=== PATIENT | female | born 1985 | race Caucasian/White ===

== ENCOUNTER 2017-08-01 01:22 | Emergency (ER) | payer OTHER ==
[~2017-08-01] VITALS: Ht 170.2 cm; Wt 65.8 kg
[2017-08-01 01:47] LABS: BILIRUBIN,URINE NEGATIVE (NEG); GLUCOSE,URINE NEGATIVE (NEG); NITRITE,URINE POSITIVE (NEG); PROTEIN,URINE NEGATIVE (NEG-TRACE)
[2017-08-01 01:53] LABS: BACTERIA,URINE MANY /HPF (0-FEW); SQUAMOUS EPITHELIAL CELL,UR MOD /LPF
[2017-08-01] MEDS ORDERED: NITROFURANTOIN MONOHYD/M-CRYST 100 MG CAPSULE. PO ONE ×2 (02:00→02:01)
[2017-08-01] MEDS ORDERED: PHENAZOPYRIDINE 200 MG TABLET. PO ONE (02:00)
[2017-08-01] MEDS ORDERED: PHENAZOPYRIDINE 200 MG TABLET. ONE (02:01)
[2017-08-01 02:02] VITALS: BP 127/75
[2017-08-01] MEDS ORDERED: ONDA4TAB10 PO (02:12)
[2017-08-01] MEDS ORDERED: PHEN-318 PO (02:12)
[2017-08-01] MEDS ORDERED: NITR100C62 PO (02:12)
--- NOTE | 2017-08-01 02:12 | PHYS DOC ---
Past Medical History Past Medical History: Kidney Infection, UTI Past Surgical History: Tubal ligation Additional Past Surgical Histo: URETER REFLEX SX Additional Information: non smoker Alcohol Use: Occasionally Drug Use: None Adult General Chief Complaint Chief Complaint: FLANK PAIN HPI HPI Patient is a 32 year old female who presents with flank pain, nausea and difficulty urinating. This started yesterday. She woke up at 3:00 the morning with aches. A temperature 101 and chills. Has some nausea now. No vomiting however. No diarrhea. She states it was hard to urinate throughout the day. She' s had prior urinary tract infections in the past she states. No recent travel. No cough or cold symptoms. Review of Systems Review of Systems Constitutional: POS fever or chills Eyes: Denies change in visual acuity, redness, or eye pain HENT: Denies nasal congestion or sore throat Respiratory: Denies cough or shortness of breath Cardiovascular: No chest pain GI: Denies abdominal pain, POS nausea, NO vomiting, bloody stools or diarrhea : POS dysuria and urinary hesitancy; NO hematuria Musculoskeletal: POS back pain and muscle aches. Integument: Denies rash or skin lesions Neurologic: Denies headache, focal weakness or sensory changes All other systems were reviewed and found to be within normal limits, except as documented in this note. Current Medications Current Medications Current Medications Medications (Trade) Dose Ordered Sig/Alvino Start Time Stop Time Status Last Admin Dose Admin Ketorolac Tromethamine (Toradol Im) 60 mg 1X ONCE 08/01/17 02:30 08/01/17 02:30 DC 08/01/17 02:13 60 MG Nitrofurantoin Macrocrystals (Macrobid) 100 mg 1X ONCE 08/01/17 02:00 08/01/17 02:08 DC 08/01/17 02:04 100 MG Ondansetron HCl (Zofran Odt) 4 mg 1X ONCE 08/01/17 02:30 08/01/17 02:30 DC Phenazopyridine HCl (Pyridium) 200 mg 1X ONCE 08/01/17 02:00 08/01/17 02:08 DC 08/01/17 02:03 200 MG Allergies Allergies Allergies Coded Allergies Type Severity Reaction Last Updated Verified No Known Drug Allergies 08/01/17 No Physical Exam Physical Exam Constitutional: Well developed, well nourished, no acute distress, non-toxic appearance. HENT: Normocephalic, atraumatic, bilateral external ears normal, oropharynx moist, no oral exudates, nose normal. Eyes: PERRLA, EOMI, conjunctiva normal, no discharge. Neck: Normal range of motion, no tenderness, supple, no stridor. Cardiovascular:Heart rate regular rhythm, no murmur Lungs & Thorax: Bilateral breath sounds clear to auscultation Abdomen: Bowel sounds normal, soft, no tenderness, no masses, no pulsatile masses. Skin: Warm, dry, no erythema, no rash. Back: No tenderness, no CVA tenderness. Extremities: No tenderness, no cyanosis, no clubbing, ROM intact, no edema. Neurologic: Alert and oriented X 3, normal motor function, normal sensory function, no focal deficits noted. Psychologic: Affect normal, judgement normal, mood normal. Current Patient Data Vital Signs Vital Signs Date Time Temp Pulse Resp B/P (MAP) Pulse Ox O2 Delivery O2 Flow Rate FiO2 08/01/17 02:02 88 18 127/75 (92) 99 Room Air 08/01/17 01:30 98.6 98.6 Lab Values Laboratory Tests Test 08/01/17 01:24 08/01/17 01:39 Urine Collection Type Unknown Urine Color Yellow Urine Clarity Clear Urine pH 6.0 Urine Specific Anita 1.020 Urine Protein Negative mg/dL (NEG-TRACE) Urine Glucose (UA) Negative mg/dL (NEG) Urine Ketones (Stick) Negative mg/dL (NEG) Urine Blood Moderate (NEG) Urine Nitrite Positive (NEG) Urine Bilirubin Negative (NEG) Urine Urobilinogen Dipstick 1.0 mg/dL (0.2 mg/dL) Urine Leukocyte Esterase Negative (NEG) Urine RBC 6-10 /HPF (0-2) Urine WBC 5-10 /HPF (0-4) Urine Squamous Epithelial Cells Mod /LPF Urine Bacteria Many /HPF (0-FEW) Urine Mucus Mod /LPF POC Urine HCG, Qualitative Hcg negative (Negative) Course & Med Decision Making Course & Med Decision Making UA positive. UCG NEGATIVE. Toradol IM; Zofran ODT; Pyridium po and macrobid po. Home with scripts. I have spoken with the patient and/or caregivers. I have explained the patient' s condition, diagnosis and treatment plan based on the information available to me at this time. I have answered the patient's and/or caregiver's questions and addressed any concerns. The patient and/or caregivers have as good an understanding of the patient's diagnosis, condition and treatment plan as can be expected at this point. The patient's condition is stable and appropriate for discharge from the emergency department. The patient will pursue further outpatient evaluation with the primary care physician or other designated or consulting physician as outlined in the discharge instructions. The patient and/or caregivers are agreeable to this plan of care and follow-up instructions have been explained in detail. The patient and/or caregivers have received these instructions in written format and have expressed an understanding of the discharge instructions. The patient and/or caregivers are aware that any significant change in condition or worsening of symptoms should prompt an immediate return to this or the closest emergency department or a call to 911. Dragon Disclaimer Dragon Disclaimer This electronic medical record was generated, in whole or in part, using a voice recognition dictation system. Departure Departure Impression: Primary Impression: Urinary tract infection Additional Impression: Nausea Disposition: HOME, SELF-CARE Condition: STABLE Referrals: NO PCP (PCP) Patient Instructions: Urinary Tract Infection Additional Instructions: YOU WERE GIVEN YOUR FIRST DOSE OF ANTIBIOTICS HERE (MACROBID) AND PYRIDIUM ( BLADDER PAIN MEDICATION). YOU WERE GIVEN A PAIN SHOT WELL AND NAUSEA MEDICATION. Scripts Ondansetron (ZOFRAN ODT) 4 Mg Tab.rapdis 4 MG PO BID Y for NAUSEA/VOMITING, #10 TAB Prov: ADELAIDA SU MD 08/01/17 Phenazopyridine Hcl (PYRIDIUM) 200 Mg Tablet 200 MG PO TID, #10 TAB Prov: ADELAIDA SU MD 08/01/17 Nitrofurantoin Monohyd/M-Cryst (MACROBID 100 MG CAPSULE) 100 Mg Capsule 1 CAP PO BID, #14 CAP Prov: ADELAIDA SU MD 08/01/17 Problem Qualifiers Primary Impression: Urinary tract infection Urinary tract infection type: acute cystitis Hematuria presence: with hematuria Qualified Codes: N30.01 - Acute cystitis with hematuria ADELAIDA SU MD Aug 01, 2017 02:12
[2017-08-01] MEDS ORDERED: KETOROLAC 60 MG/2 ML INJ. IM ONE (02:30)
[2017-08-01] MEDS ORDERED: ONDANSETRON ODT 4 MG TAB.RAPDIS. PO ONE (02:30)
== END 2017-08-01 02:22 | disposition home or self-care (01) ==
LOC: ER 01:22
DX: N39.0 Urinary tract infection, site not specified (principal); R11.0 Nausea; Z87.440 Personal history of urinary (tract) infections; Z98.51 Tubal ligation status
CPT/HCPCS: 81001; 81025; 87086; 87186; 96372; 99284; J1885